=== PATIENT | male | born 1945 | race Caucasian/White ===

== ENCOUNTER 2016-12-19 02:57 | Inpatient (IN) ==
[2016-12-14 09:53] LABS: MANUAL DIFF NEEDED? NO; URINE MICRO REVIEW NEEDED? NO; URINE SOURCE CLEAN CATCH
[2016-12-14 10:07] LABS: BASO% 0.6 % (0.0-0.8); BILIRUBIN URINE NEGATIVE (NEGATIVE); BLOOD URINE NEGATIVE (NEGATIVE); COLOR YELLOW; EOS% 2.3 % (0.0-10.0); GLUCOSE URINE NEGATIVE (NEGATIVE); HEMATOCRIT 40.7 % (42.0-52.0); HEMOGLOBIN 13.8 g/dL (14.0-18.0); LEUKOCYTES URINE NEGATIVE (NEGATIVE); LYMPH# 2.22 X1000 (1.2-3.4); LYMPH% 25.9 % (20.5-51.1); MCH 30.5 PG (27-31); MCHC 33.9 g/dL (33-37); MONO# 0.88 X1000 (0.11-0.59); MONO% 10.3 % (1.7-9.3); MPV 9.7 FL (7.4-10.4); NEUT% 60.9 % (42.2-75.2); NITRITE URINE NEGATIVE (NEGATIVE); PLT 377 X1000 (130-400); PROTEIN URINE NEGATIVE (NEGATIVE); RBC 4.52 XMIL (4.7-6.1); TURBIDITY URINE CLEAR (CLEAR); UROBILINOGEN URINE NORMAL (NORMAL)
[2016-12-14 10:08] LABS: UR EPITHELIAL CELLS <10 /HPF (<10); URINE BACTERIA NEGATIVE /HPF; URINE RBC <10 /HPF (<10); URINE WBC <10 /HPF (<10)
[2016-12-14 10:13] LABS: INR 1.01; PROTIME 10.6 Seconds (9.2-11.7); PTT 39.5 Seconds (22.0-36.0)
[2016-12-14 10:24] LABS: CALCIUM 9.2 mg/dL (8.8-10.2); POTASSIUM 3.9 mmol/L (3.5-5.1)
--- NOTE | 2016-12-14 10:45 | EKG Report ---
Test Performed on : 12/14/2016 09:21:02 AM Test Reason : PAT Blood Pressure : / mmHG Vent. Rate : 064 BPM Atrial Rate : 064 BPM P-R Int : 126 ms QRS Dur : 140 ms QT Int : 446 ms P-R-T Axes : 046 -03 099 degrees QTc Int : 460 ms Normal sinus rhythm. Left bundle branch block Abnormal ECG When compared with ECG of 29-OCT-2014 21:45, Left bundle branch block has replaced Incomplete left bundle branch block Confirmed by Alejandra HERRERA, Manohar Bateman ([id number]) on 12/15/2016 9:38:48 PM
[2016-12-19] MEDS ORDERED: CELEBREX ONE (06:04)
[2016-12-19] MEDS ORDERED: REGLAN ONE (06:04)
[2016-12-19] MEDS ORDERED: LYRICA ONE (06:04)
[2016-12-19] MEDS ORDERED: LR 1,000 ML ONE (06:04)
[2016-12-19] MEDS ORDERED: LR 0 ML ONE (06:04)
[2016-12-19] MEDS ORDERED: COLACE ONE (06:04)
[2016-12-19] MEDS ORDERED: PEPCID ONE (06:04)
[2016-12-19] MEDS ORDERED: KEFZOL 2 GM/D5W 2 GM/50 ML IVPB ONE (06:05)
[2016-12-19] MEDS ORDERED: NORCO-10 PO PRN (07:16)
[2016-12-19] MEDS ORDERED: MORPHINE IV PRN (07:17)
[2016-12-19] MEDS ORDERED: CYKLOKAPRON 1,000 MG/NS 1,000 MG/100 ML IVPB ONE (07:23)
[2016-12-19] MEDS ORDERED: DURAMORPH ONE (07:23)
[2016-12-19] MEDS ORDERED: SODIUM CHLORIDE 0.9% ONE (07:23)
[2016-12-19] MEDS ORDERED: MARCAINE 0.25% PF/EPI 1:200,000 ONE (07:23)
[2016-12-19] MEDS ORDERED: TORADOL ONE (07:23)
[2016-12-19] MEDS ORDERED: CLAVE SECONDARY SET 11953 ONE ×2 (07:24→11:33)
[2016-12-19] MEDS ORDERED: EXPAREL 1.3% ONE (07:24)
[2016-12-19] MEDS ORDERED: NEOSPORIN G.U. IRRIGANT ONE (07:24)
--- NOTE | 2016-12-19 07:37 | HISTORY AND PHYSICAL ---
CHIEF COMPLAINT: Right hip pain. HISTORY OF PRESENT ILLNESS: Mr. Bridges is a 71-year-old, white male who has experienced progressive right hip pain for some time. His pain is worse with weightbearing and activity. Radiographic evaluation of the right hip reveals findings consistent with advanced degenerative joint disease. Despite conservative therapy, Mr. Bridges has a significant reduction in his ability to perform his normal daily activities, and will be admitted at this time for a right anterior total hip arthroplasty. PRIMARY CARE PHYSICIAN: Johnny Alcazar MD. ALLERGIES: No known drug allergies. PAST MEDICAL HISTORY: 1. Hypertension. 2. Osteoarthritis. 3. Gastroesophageal reflux disease. PAST SURGICAL HISTORY: None. SOCIAL HISTORY: The patient is a remote smoker. CURRENT MEDICATIONS: 1. Prilosec 40 mg daily. 2. Methocarbamol 2 tablets by mouth at bedtime. 3. Lisinopril/hydrochlorothiazide combination 20/12.5 mg 1 tablet daily. 4. Meloxicam 15 mg by mouth daily. REVIEW OF SYSTEMS: HEENT: No known history of stroke or cerebrovascular disease. Denies history of syncopal events. Cardiac: The patient is treated for hypertension. Denies any history of coronary artery disease or valvular heart disease. No chest pain, pressure, or other anginal equivalents reported. Pulmonary: The patient is a remote smoker with no history of lung disease. Gastrointestinal: He is treated for gastroesophageal reflux disease. Genitourinary: Denies recent kidney or bladder infection. Neurological: Denies extremity radicular pain, weakness, or paresthesia. Musculoskeletal: He is here today for management of his osteoarthritic right hip. PHYSICAL EXAMINATION: GENERAL: The patient is alert and oriented x3. He has friends at his bedside. He is articulate and able to answer all questions. HEENT: Head is normocephalic and atraumatic. Pupils are equal, round, and react to light. Nares are patent. Throat without exudate. NECK: Supple. HEART: Regular rate and rhythm. No murmurs, gallops, or rubs. LUNGS: Clear to auscultation bilaterally. GASTROINTESTINAL: The abdomen is flat. Bowel sounds are present. It is nontender. GENITOURINARY: Not examined. MUSCULOSKELETAL: Right hip: No gross deformity, edema, or ecchymosis is noted. Neurovascular status is intact with a good peripheral pulse. IMPRESSION: Degenerative joint disease of the right hip. PLAN: Right anterior total hip arthroplasty. The risks and benefits of surgery were explained to the patient including the risks of anesthesia, , bleeding, infection, damage to tendons, ligaments, nerves, and blood vessels, the possibility of blood clots and other imponderables were discussed, and he wishes to proceed with operative management at this time. Dictated by FREDA Love for Jaylen Garza MD cc: FREDA Love MD
[2016-12-19 08:41] LABS: URINE MICRO REVIEW NEEDED? NO; URINE SOURCE CATH
[2016-12-19] MEDS ORDERED: NS 1,000 ML ONE (09:45)
[2016-12-19] MEDS ORDERED: DIPRIVAN 1% ONE (10:14)
[2016-12-19] MEDS ORDERED: FENTANYL ONE (10:14)
[2016-12-19] MEDS: MORPHINE ONE ×2 (10:27→10:32)
[2016-12-19] MEDS ORDERED: DECADRON ONE (11:33)
[2016-12-19] MEDS ORDERED: ROBINUL ONE (11:33)
[2016-12-19] MEDS ORDERED: XYLOCAINE-MPF 2% ONE (11:33)
[2016-12-19] MEDS ORDERED: QUELICIN (DOSE) ONE (11:33)
[2016-12-19] MEDS ORDERED: ZEMURON ONE (11:33)
[2016-12-19] MEDS ORDERED: NEOSTIGMINE ONE (11:33)
[2016-12-19] MEDS ORDERED: ZOFRAN ONE (11:33)
[2016-12-19] MEDS ORDERED: LR 2,000 ML ONE (11:33)
[2016-12-19] MEDS ORDERED: OFIRMEV 1000 MG/ISOTONIC SOLN 1,000 MG/100 ML BOTTLE ONE (11:33)
[2016-12-19 11:49] LABS: BILIRUBIN URINE NEGATIVE (NEGATIVE); BLOOD URINE TRACE (NEGATIVE); COLOR YELLOW; GLUCOSE URINE NEGATIVE (NEGATIVE); LEUKOCYTES URINE NEGATIVE (NEGATIVE); NITRITE URINE NEGATIVE (NEGATIVE); PH URINE 5.5; PROTEIN URINE NEGATIVE (NEGATIVE); SP GRAVITY URINE 1.016; TURBIDITY URINE CLEAR (CLEAR); UROBILINOGEN URINE NORMAL (NORMAL)
[2016-12-19 11:52] LABS: UR EPITHELIAL CELLS <10 /HPF (<10); URINE BACTERIA NEGATIVE /HPF; URINE RBC <10 /HPF (<10); URINE WBC <10 /HPF (<10)
[2016-12-19] MEDS: CELEBREX PO SCH (12:29)
[2016-12-19] MEDS ORDERED: ZOFRAN IV PRN (12:30)
[2016-12-19] MEDS: COLACE PO SCH ×2 (12:30→21:12)
[2016-12-19] MEDS: PRINZIDE 20/12.5MG PO SCH (12:30)
[2016-12-19] MEDS: NS 1,000 ML IV SCH ×2 (13:42→23:05)
[2016-12-19] MEDS ORDERED: PNEUMOVAX 23 IM ONE (14:00)
[2016-12-19] MEDS ORDERED: CYKLOKAPRON 1,000 MG in NS 100 ML IV ONE (14:00)
--- NOTE | 2016-12-19 14:40 | OPERATIVE NOTE ---
PROCEDURE DATE: 12/19/2016 PREOPERATIVE DIAGNOSIS: Degenerative joint disease, right hip. POSTOPERATIVE DIAGNOSIS: Degenerative joint disease, right hip. PROCEDURE: Right anterior hip replacement. SURGEON: Arlene Garza MD CHIEF RELAY TESTER: RALPH Wise ANESTHESIA: General. COMPLICATION: None. PROCEDURE IN DETAIL: A 71-year-old male presents for right anterior hip replacement. Risks, benefits, and no guarantees were discussed, and the patient is willing to proceed. He was taken to the operating room and satisfactory anesthesia obtained. The right hip was prepped and draped in the usual sterile fashion. A time-out was taken to confirm operative site, procedure, and patient. An anterior approach to the right hip was undertaken starting 1 cm lateral and distal to the anterior superior iliac spine. Roughly 10-12 cm incision was made and dissection carried down through the fascia of the tensor fascia. Blunt dissection along the inner membrane down to the anterior hip was utilized. Cobra retractors were placed over the superior and inferior aspect of the femoral neck. Femoral neck capsule was then opened and the femoral neck osteotomy made roughly 8 mm above the lesser trochanter. The femoral head was removed. Sequential reaming of the acetabulum was undertaken under direct vision up to a 57 reamer. A DePuy [place] 58 outer diameter cup was then impacted into the acetabulum in roughly 45 degrees of abduction and 10 degrees of anteversion under fluoroscopic guidance. This was noted to have secure initial press- fit fixation. A 25 length screw was placed in the 12 o'clock position for additional stability and a 0 degree, 36 inner diameter polyethylene liner locked into the cup. The cup was then checked for stability with good impaction and stability the implant. The [place] table was then used to extend and externally rotate the proximal femur to allow broaching of the proximal femur. Due to a type A bone, reaming of the diaphysis was undertaken with the flexible reamer up to an 11.5 reamer. Sequential broaching with a [employer] [place] broach system was undertaken up to an 11 stem. This had good rotational stability. Best episcopalian of neck lengths with a standard neck was achieved with a -2, 36 head. This restored geometry as well stability of the hip. The trial stem was removed and a [place] 11 standard neck geometry stem impacted into the proximal femur with secure axial and rotational stability. A 36 metal -2 neck length head was impacted onto this and the hip reduced. The hip was stable in both extension and neutral position up to 90 degrees of external rotation. The leg lengths were roughly equal on the fluoroscopic AP pelvis. The wound was then copiously irrigated. A Hemovac drain was placed. The joint capsule and skin was injected with Exparel for pain management. The fascia of the tensor was closed with a running 0 Vicryl. The subcutaneous with 2-0 Vicryl and the skin with skin alejandro. He was recovered from anesthesia and transferred to the recovery room in stable condition. No intraoperative complications were noted. Instrument count and sponge count was correct at the time of closure. cc: Jaylen Garza MD
[2016-12-19] MEDS: KEFZOL 1 GM/D5W 1 GM/50 ML IVPB IV SCH ×2 (16:06→23:05)
[2016-12-19] MEDS ORDERED: ROBAXIN PO SCH (21:00)
[2016-12-19] MEDS: PERIDEX MT SCH (21:12)
[2016-12-20] MEDS ORDERED: CHLORASEPTIC SORE THROAT LOZENGE MT PRN (05:43)
[2016-12-20] MEDS: PRILOSEC PO SCH ×2 (05:44→06:40)
[2016-12-20] MEDS ORDERED: XARELTO PO SCH (06:00)
[2016-12-20 06:24] LABS: HEMATOCRIT 35.3 % (42.0-52.0); HEMOGLOBIN 11.4 g/dL (14.0-18.0)
[2016-12-20 06:48] LABS: AGAP 15; BUN 13 mg/dL (8-22); CALCIUM 7.9 mg/dL (8.8-10.2); CHLORIDE 101 mmol/L (98-107); COSMO 276; POTASSIUM 4.2 mmol/L (3.5-5.1); SODIUM 137 mmol/L (136-145); TCO2 21 mmol/L (25-35)
[2016-12-20] MEDS: COLACE PO SCH (09:47)
[2016-12-20] MEDS: PRINZIDE 20/12.5MG PO SCH (09:47)
[2016-12-20] MEDS: PERIDEX MT SCH (09:47)
[2016-12-20] MEDS: CELEBREX PO SCH (09:47)
[2016-12-20 15:22] VITALS: BP 127/60
--- NOTE | 2016-12-21 12:42 | DISCHARGE SUMMARY ---
ADMISSION DATE: 12/19/2016 DISCHARGE DATE: 12/20/2016 ADMITTING DIAGNOSIS: Degenerative joint disease of the right hip. ADDITIONAL DIAGNOSES: 1. Hypertension. 2. Arthritis. 3. Gastroesophageal reflux disease. DISCHARGE DIAGNOSES: 1. Degenerative joint disease of the right hip. 2. Hypertension. 3. Arthritis. 4. Gastroesophageal reflux disease. ADMITTING HISTORY AND HOSPITAL COURSE: Mr. Bridges is a 71-year-old white male with a history of progressive right hip pain. Radiographic images showed some advanced degenerative joint disease. He had surgery on 12/19/2016. After his surgery, he remained afebrile. His vital signs remained stable. Currently his hematocrit is 35.3. There are no signs or symptoms of infection. He has ambulated about 250 feet today with a front wheeled walker and we plan to send him home with home health and start a home physical therapy regimen. DISCHARGE MEDICATIONS: 1. Prilosec 40 mg p.o. daily. 2. Lisinopril-hydrochlorothiazide 20-12.5 mg tablet one p.o. daily. 3. Methocarbamol 500 mg two tablets p.o. at bedtime. 4. Xarelto 10 mg p.o. daily for 21 days. 5. [place] 10 one to two p.o. q.4-6 hours p.r.n. for pain, #60. DISCHARGE INSTRUCTIONS: Mr. Bridges is discharge home today. We are just going to begin a home physical therapy regimen. I have discussed family. He is going home with pain medication and blood thinner and went over the indications for the medications and he understands. I have discussed with him that if he has any worsening signs or symptoms that he should call the office immediately. I also talked with him about his followup appointment, which will be in about 10 days. He will need to follow with Dr. Garza and have his alejandro removed. Dictated by RALPH Wise for Jaylen Garza MD cc: RALHP Wise MD
== END 2016-12-20 16:06 | disposition home health service (06) ==
LOC: SURHOLD 02:57 → 4N 08:23
PROVIDERS: ADMIT Orthopaedic Surgery Adult Reconstructive Orthopaedic Surgery; ATTEND Orthopaedic Surgery Adult Reconstructive Orthopaedic Surgery